=== PATIENT | male | born 1960 | race Caucasian/White ===

== ENCOUNTER → 2018-12-05 | Outpatient (REF) ==
--- NOTE | 2018-12-05 19:04 | REP ---
CERVICAL SPINE AP AND LATERAL: AP and lateral views of the cervical spine are performed with three total views obtained. There is evidence of prior anterior cervical discectomy and fusion at C5-C7 with an anterior metallic plate bridging those levels with two metallic screws at C5, C6, and C7 levels. There is moderate disc space narrowing at C5-6 and C6-7. Large anterior osteophyte is noted of C4. There is no compression fracture or malalignment. There is mild diffuse sclerosis and spurring at the posterior facet joints. IMPRESSION: Post-surgical and degenerative changes as above. Electronically Signed by Jerel Ramirez MD 12/06/2018 10:53 A
== END ==
LOC: M SMT 13:54
PROVIDERS: ATTEND Internal Medicine
DX: Z02.71 Encounter for disability determination (principal)